=== PATIENT | male | born 1995 | race African-American/Black ===

== ENCOUNTER 2018-09-10 20:22 | Emergency (ER) | payer OTHER ==
[~2018-09-10] VITALS: Ht 182.9 cm; Wt 65.9 kg
[2018-09-10] MEDS: METOCLOPRAMIDE HCL 5 MG/ML 2 ML VIAL IVP ONE ×2 (22:25→23:30)
[2018-09-10] MEDS: DiphenhydrAMINE HCL 50 MG/ML VIAL IVP ONE ×2 (22:25→23:30)
[2018-09-10] MEDS: SODIUM CHLORIDE 0.9% 1,000 ML IV ONE ×2 (22:25→22:30)
[2018-09-11 01:39] VITALS: BP 122/75
== END 2018-09-11 03:54 | disposition left against medical advice (07) ==
LOC: EMS 20:23
DX: R51 Headache (principal); R11.2 Nausea with vomiting, unspecified; R42 Dizziness and giddiness
CPT/HCPCS: 96361; 96374; 96375; 99284; J1200; J2765; J7030